=== PATIENT | female | born 1995 | race African-American/Black ===

== ENCOUNTER 2020-02-25 17:30 | Emergency (ER) | payer BC, SELFPAY ==
[2020-02-25 17:50] VITALS: BP 112/78; PULSE 100; RESP 18; TEMP 36.7; O2SAT 99; BMI 47.4
--- NOTE | 2020-02-25 17:54 | HMH.EDUTC ---
[facility] [place] Disposition Clinical Impression: Close exposure to COVID-19 virus Disposition: Home, Self-Care Condition on Discharge: Good Instructions: DI for COVID-19 (Suspected or Confirmed ), COVID-19: Testing and Tracing, Preventing the Spread of Coronavirus Discharge Instructions Additional Instructions: *Monitor Temp, Over the counter Motrin or Tylenol as directed/as needed Tylenol every 4 hours and Motrin every 6 hours (as long as your family doctor has told you that you can take it) for fever or pain. and straight to ER if unable to lower temp less than 101.0 after medication given *Warm salt water gargles may help to soothe the throat *Throat Lozenges *Warm fluids like tea with honey may help to soothe the throat *Sleep elevated *Humidifier/Vaporizer Follow up IMMEDIATELY for new or worsening symptoms or no Noticeable improvement over the next 48-72 hours. 911 for difficulty breathing or swallowing You were tested for today for COVID19 your test result should be back in the next 24-48 hours, you may call to the [facility] to see if your test results are back in the next 48 hours [phone] [facility] hours are 9am-9pm You was given a handout with instructions for Self Quarantine and Self isolation for while you wait on test results and what to do if they are positive If you are positive the Health Dept will be contacting you also Referrals: Paula Hammond APRN [Primary Care Provider] - As needed Forms: Work/School Release Time of Disposition: 17:56 Medical Decision Making - Misbah Inquiry Pt receiving controlled substance: No Misbah was queried for this patient: No Vital Signs: 02/25/20 17:50 Temperature 98.1 F Temperature Source Oral Pulse Rate [Radial] 100 H Respiratory Rate 18 Blood Pressure [Right Arm] 112/78 Blood Pressure Mean [Right Arm] 89 Blood Pressure Source [Right Arm] Automatic Cuff Blood Pressure Position [Right Arm] Sitting 02 Sat by Pulse Oximetry 99 Oxygen Delivery Method Room Air Orders (Tests/Meds): ORDERS Category Date Time Status Covid-19 Nasal PCR ([facility]) Routine Lab 02/25/20 17:32 Ordered [facility] [place] HPI - General Stated complaint: covid exposure,sore throat Time Seen by Provider: 02/25/20 17:54 Mode of Arrival: Ambulatory Source of Information: Patient Limitations: No Limitations Description of Symptoms (Recalled from Triage Doc. by RN): covid exposure, sore throat. HEENT Symptoms (Recalled from RN notes): No Resp Symptoms (Recalled from RN notes): No Skin Symptoms (Recalled from RN notes): No MS Symptoms (Recalled from RN notes): No Functional Status (Recalled from RN notes): wnl - History of Present Illness Provider Complaint: Patient states that she was recently exposed to person who is positive for COVID States that she lives with person that was recently tested for COVID and is positive States that she has been having a little sore scratchy throat but denies fever - Related Data Home Medications Medication Instructions Recorded Confirmed Etonogestrel [Nexplanon] 68 mg SQ DAILY 09/23/17 09/23/17 Previous Rx's Medication Instructions Recorded Ondansetron [Zofran 4mg ODT] 4 mg PO Q8H PRN #6 tab.rapdis 09/23/17 Allergies Allergy/AdvReac Type Severity Reaction Status Date / Time No Known Allergies Allergy Verified 09/23/17 11:36 - Worker's Comp Is this a Worker's Comp case?: No [facility] History - Hepatitis A Screen Drug use history?: No High risk sexual behaviors?: No History of sexually transmitted infection?: No Currently employed?: No Childcare worker?: No Do you have indoor plumbing?: Yes Do you have electricity?: Yes Attestation statement:: This patient has been screened for Hepatitis A risk factors. I have reviewed the patient's past medical history: Yes Medical History: Denies:: Diabetes Mellitus Type 1, Diabetes Mellitus Type 2, Gall Bladder Disease, Gastroesophageal Reflux Disease(GERD), Gastrointestinal Bleed, Hypertension, R
[2020-02-25 18:09] VITALS: BP 112/78; PULSE 100; RESP 18; TEMP 36.7; O2SAT 99
== END 2020-02-25 18:15 | disposition home or self-care (01) ==
PROVIDERS: Emergency Provider Nurse Practitioner; PCP Nurse Practitioner Family
DX: Z20.828 Contact with and (suspected) exposure to other viral communicable diseases (principal)
CPT/HCPCS: 99201; U0003

== ENCOUNTER 2020-03-06 15:48 | Emergency (ER) | payer BC, SELFPAY ==
[2020-03-06 16:40] VITALS: BP 142/76; PULSE 85; RESP 19; TEMP 36.8; O2SAT 98; BMI 47.6
--- NOTE | 2020-03-06 17:01 | HMH.EDUTC ---
[facility] [place] Disposition Clinical Impression: Strep throat, Encounter by telehealth for suspected COVID-19 Disposition: Home, Self-Care Condition on Discharge: Good Instructions: DI for COVID-19 (Suspected or Confirmed ), COVID-19: Testing and Tracing, Preventing the Spread of Coronavirus Discharge Instructions, DI for Strep Throat, Strep Throat Additional Instructions: *Monitor Temp, Over the counter Motrin or Tylenol as directed/as needed Tylenol every 4 hours and Motrin every 6 hours (as long as your family doctor has told you that you can take it) for fever or pain. and straight to ER if unable to lower temp less than 101.0 after medication given *Warm salt water gargles may help to soothe the throat *Throat Lozenges *Warm fluids like tea with honey may help to soothe the throat *Sleep elevated *Humidifier/Vaporizer If you did not take Penicillin shot or was unable to, start taking antibiotic immediately and make sure that you take it for the FULL length of time although you should start to feel better in 24-48 hours *change toothbrush and toothpaste 24-48 hours after starting to take antibiotics so you do not reinfect yourself Monitor Temp. Tylenol and/or Ibuprofen as needed. ER if fever is no less than 101 despite alternating Tylenol and Ibuprofen * Encourage fluids, water, Gatorade, powerade, pedialyte if infant/toddler/or child *Cold fluids, popsicles and ice cream may feel good on his throat Follow up IMMEDIATELY for new or worsening symptoms or no Noticeable improvement over the next 48-72 hours. 911 for difficulty breathing or swallowing You were tested for today for COVID19 your test result should be back in the next 24-48 hours, you may call to the [facility] to see if your test results are back in the next 48 hours [phone] [facility] hours are 9am-9pm You was given a handout with instructions for Self Quarantine and Self isolation for while you wait on test results and what to do if they are positive If you are positive the Health Dept will be contacting you also Prescriptions: Amoxicillin [Amoxicillin 500mg Cap] 500 mg PO BID 10 Days #20 cap Transmission Status: Pending to [facility] Referrals: Paula Hammond APRN [Primary Care Provider] - As needed Time of Disposition: 17:17 Medical Decision Making - Misbah Inquiry Pt receiving controlled substance: No Misbah was queried for this patient: No Vital Signs: 03/06/20 16:40 Temperature 98.2 F Temperature Source Oral Pulse Rate [Left Brachial] 85 Respiratory Rate 19 Blood Pressure [Right Arm] 142/76 H Blood Pressure Mean [Right Arm] 98 Blood Pressure Source [Right Arm] Automatic Cuff Blood Pressure Position [Right Arm] Sitting 02 Sat by Pulse Oximetry 98 Oxygen Delivery Method Room Air - Lab Data Lab results reviewed: Yes: I reviewed the patient's lab results. Orders (Tests/Meds): ORDERS Category Date Time Status Covid-19 Nasal PCR ([facility]) Routine Lab 03/06/20 16:32 Ordered [facility] [place] HPI - General Stated complaint: sore throat, cough, soa (exposure) Time Seen by Provider: 03/06/20 17:01 Mode of Arrival: Ambulatory Source of Information: Patient Limitations: No Limitations Description of Symptoms (Recalled from Triage Doc. by RN): PATIENT REQUESTING COVID TEST D/T EXPOSURE. C/O COUGH, SORE THROAT, FATIGUE, AND CONGESTION HEENT Symptoms (Recalled from RN notes): Yes Resp Symptoms (Recalled from RN notes): No Skin Symptoms (Recalled from RN notes): No MS Symptoms (Recalled from RN notes): No Functional Status (Recalled from RN notes): WNL - History of Present Illness Provider Complaint: Patient states that she has been having sore throat, body aches, fever and feeling tired State that she was worried that she may have COVID and wanted to get tested - Related Data Home Medications Medication Instructions Recorded Confirmed Etonogestrel [Nexplanon] 68 mg SQ DAILY 09/23/17 09/23/17 Previous Rx's Medication Instructions R
[2020-03-06 17:29] VITALS: BP 142/76; PULSE 85; RESP 19; TEMP 36.8; O2SAT 98
[2020-03-06 21:12] LABS: UTC Strep Screen (Rapid) Positive (Negative)
--- NOTE | 2020-03-07 10:00 | PC.NURSE ---
PATIENT NOTIFIED OF POSITIVE COVID RESULTS
== END 2020-03-06 17:30 | disposition home or self-care (01) ==
PROVIDERS: Emergency Provider Nurse Practitioner; PCP Nurse Practitioner Family
DX: U07.1 COVID-19 (principal); J02.0 Streptococcal pharyngitis
CPT/HCPCS: 87880; 99202; G0463; U0003

== ENCOUNTER → 2020-11-05 19:40 | Outpatient (CLI) | payer BC, SELFPAY | PROVIDERS: Visit Provider Nurse Practitioner Family | DX: Z20.822 Contact with and (suspected) exposure to COVID-19 (principal) | CPT/HCPCS: U0003 ==

== ENCOUNTER 2021-02-26 20:31 | Emergency (ER) | payer BC, SELFPAY ==
[2021-02-26 21:24] VITALS: BP 130/94; PULSE 93; RESP 16; TEMP 36.6; O2SAT 97; BMI 45.1
[2021-02-26 21:35] LABS: Apearance,Urine Turbid (Clear); Bilirubin,Urine Negative (Negative); Blood, Urine 3+ (Negative); Color,Urine Amber (Yellow); Glucose,Urine (UA) Negative (Negative); Ketones,Urine Negative (Negative); PH,Urine 5.5 (5.0-8.5); Protein,Urine 2+ (Negative); Specific Gravity, Urine > 1.030 (1.005-1.030); UTC Leukocyte Esterase,Urine 1+ (Negative); UTC Nitrate,Urine Positive (Negative); Urobilinogen,Urine 0.2 EU/dl (0.2)
[2021-02-26 21:44] LABS: Urine Pregnancy, HCG Qual. Negative (Negative)
--- NOTE | 2021-02-26 21:44 | HMH.EDUTC ---
[facility] [place] Disposition Clinical Impression: UTI (urinary tract infection) Qualifiers: Urinary tract infection type: site unspecified Hematuria presence: with hematuria Qualified Code(s): N39.0 - Urinary tract infection, site not specified Disposition: Home, Self-Care Condition on Discharge: Good Instructions: Urine Culture, DI for Urinary Tract Infection (UTI) Additional Instructions: Drink plenty of fluids. Water would be best. Try to drink cranberry juice also. At least a glass a day for the next few days. Take tylenol or ibuprofen for pain or fever. Take the medications as directed. Follow up with your regular doctor. GO TO THE ER FOR ANY WORSENING SYMPTOMS The pyridium will make your urine turn orange, this is an expected side effect. It will stain your clothes if it comes into contact with them. Prescriptions: Ondansetron [Zofran 4mg ODT] 4 mg PO Q8HP PRN #20 tab PRN Reason: Nausea Transmission Status: [email or web address] Sulfamethoxazole/Trimethoprim [Bactrim DS tablet] 1 each PO BID 7 Days #14 tab Transmission Status: [email or web address] Phenazopyridine HCl [Pyridium 200mg Tablet] 200 pow PO TID #6 tab Transmission Status: [email or web address] Referrals: Paula Hammond APRN [Primary Care Provider] - Time of Disposition: 22:24 Medical Decision Making - Medical Records Medical records reviewed: No: I reviewed the patient's medical records. - Misbah Inquiry Pt receiving controlled substance: No Vital Signs: 02/26/21 21:24 02/26/21 21:49 Temperature 97.8 F 97.8 F Temperature Source Oral Pulse Rate 93 H Pulse Rate [Left] 93 H Respiratory Rate 16 16 Blood Pressure 130/94 H Blood Pressure [Right Arm] 130/94 H Blood Pressure Mean [Right Arm] 106 02 Sat by Pulse Oximetry 97 - Lab Data Lab results reviewed: Yes: I reviewed the patient's lab results. Lab Results 02/26/21 21:21: Urine HCG, Qual Negative 02/26/21 21:31: Urine Color Karolyn, Urine Appearance Turbid, Urine pH 5.5, Ur Specific Flynn > 1.030 H, Urine Protein 2+, Urine Glucose (UA) Negative, Urine Ketones Negative, Urine Blood 3+, Urine Nitrate Positive A, Urine Bilirubin Negative, Urine Urobilinogen 0.2, Ur Leukocyte Esterase 1+ A Orders (Tests/Meds): ED MEDICATIONS Discontinued Medications Generic Name Dose Route Start Last Admin Trade Name Monicoq PRN Reason Stop Dose Admin Phenazopyridine HCl 200 mg 02/26/21 22:30 02/26/21 22:33 Phenazopyridine 200mg Tablet PO 02/26/21 22:31 200 mg ONCE ONE Administration Trimethoprim/Sulfamethoxazole 1 each 02/26/21 22:32 02/26/21 22:33 Sulfa/Trimethoprim 1 Tablet PO 02/26/21 22:33 1 each ONCE ONE Administration ORDERS Category Date Time Status Urine Culture Stat Micro 02/26/21 21:21 Received [facility] [place] HPI - General Stated complaint: possible uti Time Seen by Provider: 02/26/21 21:44 Mode of Arrival: Ambulatory Source of Information: Patient Limitations: No Limitations Description of Symptoms (Recalled from Triage Doc. by RN): pt c/o pain with urination since this am. HEENT Symptoms (Recalled from RN notes): No Resp Symptoms (Recalled from RN notes): No Skin Symptoms (Recalled from RN notes): No MS Symptoms (Recalled from RN notes): No Functional Status (Recalled from RN notes): wnl - History of Present Illness Provider Complaint: She states that since this morning she has had burning with urination, urinary frequency and low back pain. - Related Data Home Medications Medication Instructions Recorded Confirmed Etonogestrel [Nexplanon] 68 mg SQ DAILY 09/23/17 11/05/20 Previous Rx's Medication Instructions Recorded Ondansetron [Zofran 4mg ODT] 4 mg PO Q8HP PRN #20 tab 02/26/21 Phenazopyridine HCl [Pyridium 200 pow PO TID #6 tab 02/26/21 200mg Tablet] Sulfamethoxazole/Trimethoprim 1 each PO BID 7 Days #14 tab 02/26/21 [Bactrim DS tablet] Phi
[2021-02-26 21:49] VITALS: BP 130/94; PULSE 93; RESP 16; TEMP 36.6
== END 2021-02-26 22:40 | disposition home or self-care (01) ==
PROVIDERS: Emergency Provider Nurse Practitioner Family; PCP Nurse Practitioner Family
DX: N30.00 Acute cystitis without hematuria (principal); B96.20 Unspecified Escherichia coli [E. coli] as the cause of diseases classified elsewhere
CPT/HCPCS: 81003; 81025; 87086; 87088; 87186; 99202; G0463

== ENCOUNTER → 2021-10-29 13:30 | Outpatient (CLI) | payer BC, SELFPAY | PROVIDERS: PCP Nurse Practitioner Family; Visit Provider Obstetrics & Gynecology | DX: N92.6 Irregular menstruation, unspecified (principal) | CPT/HCPCS: 36415; 84702 ==

== ENCOUNTER → 2021-11-01 15:50 | Outpatient (CLI) | payer BC, SELFPAY ==
[2021-11-05 22:20] LABS: Neisseria gonorrhoeae, NAA Negative (Negative)
== END ==
PROVIDERS: Visit Provider Obstetrics & Gynecology
DX: Z34.90 Encounter for supervision of normal pregnancy, unspecified, unspecified trimester (principal)
CPT/HCPCS: 87086; 87491; 87591

== ENCOUNTER → 2021-11-23 12:36 | Outpatient (CLI) | payer BC, SELFPAY ==
[2021-11-23 12:59] LABS: Basophils # 0.1 K/mm3 (0-0.2); Basophils % 0.7 % (0.1-2.0); Eosinophils # 0.1 K/mm3 (0.0-0.4); Eosinophils % 1.2 % (0.1-12.0); Hematocrit 39.7 % (37.0-47.0); Hemoglobin 12.9 g/dL (12.2-16.2); Lymphocytes # 2.1 K/mm3 (0.7-4.5); Lymphocytes % 29.8 % (10-50); Mean Corpuscular HGB Conc 32.5 g/dL (31.8-35.4); Mean Corpuscular Hemoglobin 28.6 pg (27.0-31.2); Mean Corpuscular Volume 88.1 fl (81-99); Mean Platelet Volume 8.1 fl (7.4-10.4); Monocytes # 0.3 K/mm3 (0.1-1.0); Neutrophils # 4.4 K/mm3 (1.8-7.8); Neutrophils % 63.4 % (37.0-80.0); Platelet Count 348 K/mm3 (142-424); Red Blood Count 4.51 M/mm3 (4.20-5.40); Red Cell Distribution Width 13.3 % (11.5-17.5); White Blood Count 6.9 K/mm3 (4.8-10.8)
[2021-11-24 08:11] LABS: Rapid Plasma Reagin Ab Titer Non Reactive (NonRea<1:1)
[2021-11-24 09:18] LABS: HIV Screen 4th Generation wRfx Non Reactive (Non Reactive); Hepatitis B Surface Antigen Negative (Negative); Hepatitis C Antibody <0.1 s/co ratio (0.0-0.9)
[2021-11-25 09:32] LABS: Rubella Antibodies, IgG 4.05 index (Immune >0.99)
== END ==
PROVIDERS: PCP Nurse Practitioner Family; Visit Provider Obstetrics & Gynecology
DX: Z34.90 Encounter for supervision of normal pregnancy, unspecified, unspecified trimester (principal)
CPT/HCPCS: 36415; 85025; 86592; 86703; 86762; 86850; 87340; 87380; G0432

== ENCOUNTER → 2022-01-21 12:55 | Outpatient (CLI) | payer BC, SELFPAY ==
--- NOTE | 2022-01-21 12:55 | US_ITS ---
FINAL REPORT CLINICAL HISTORY: 20 week anatomy scan FINDINGS: There is a single live intrauterine gestation. Presentation is breech. The cervix is closed and measures 3.9 cm. Placenta is anterior, grade 1. movement is noted. Heart rate is measured at 144 beats per minute. Three-vessel cord with satisfactory umbilical cord insertion. Four-chamber heart is noted. brain and ventricles are unremarkable. Chest and diaphragm are unremarkable. ABDOMEN: Both kidneys are unremarkable. Stomach is unremarkable. SPINE: No anomalies identified. Both arms and legs noted. AMNIOTIC FLUID: Appropriate amount. MEASUREMENTS: ULTRASOUND AGE: 19 weeks 5 days. GESTATION AGE: 19 weeks 2 days. ESTIMATED WEIGHT: 299 g GROWTH PERCENTILE: 61% LMP percentile BPD: 4.6 cm corresponding with 19 weeks 6 days. OFD: 5.8 cm corresponding with 20 weeks 0 days. HC: 16.4 cm corresponding with 19 weeks 1 days. AC: 13.9 cm corresponding with 19 weeks 3 days. FL: 3.2 cm corresponding with 20 weeks 0 days. CEREBELLUM: 1.8 cm corresponding with 19 weeks 1 days. HUMERUS: 2.9 cm corresponding with 19 weeks 4 days. HC/AC: 1.18 CI: 79% FL/BPD: 69% FL/AC: 23% IMPRESSION: Single living IUP with an ultrasound age of 19 weeks 5 days. Right ventricular outflow tract is not seen of uncertain significance. Recommend follow-up or high risk scan. Reviewed, Interpreted and Dictated by Dutch Hong III, MD Transcribed by Keyla Abbasi Authenticated and [facility]
== END ==
PROVIDERS: PCP Nurse Practitioner Family; Visit Provider Obstetrics & Gynecology
DX: Z34.90 Encounter for supervision of normal pregnancy, unspecified, unspecified trimester (principal); Z3A.20 20 weeks gestation of pregnancy
CPT/HCPCS: 76811

== ENCOUNTER → 2022-03-26 10:29 | Outpatient (CLI) | payer BC, SELFPAY ==
[2022-03-26 10:47] LABS: MANUAL DIFFERENTIAL MANUAL DIFFERENTIAL (MANUAL DIFF)
[2022-03-26 11:22] LABS: Glucose,Fasting 92 mg/dl (74-100)
[2022-03-26 11:31] LABS: Basophils % 0.2 % (0.1-2.0); Eosinophils # 0.1 K/mm3 (0.0-0.4); Eosinophils % 1.1 % (0.1-12.0); Hematocrit 37.4 % (37.0-47.0); Hemoglobin 12.4 g/dL (12.2-16.2); Lymphocytes # 2.1 K/mm3 (0.7-4.5); Lymphocytes % 20.5 % (10-50); Mean Corpuscular HGB Conc 33.2 g/dL (31.8-35.4); Mean Corpuscular Hemoglobin 29.1 pg (27.0-31.2); Mean Corpuscular Volume 87.9 fl (81-99); Mean Platelet Volume 8.5 fl (7.4-10.4); Monocytes # 0.4 K/mm3 (0.1-1.0); Monocytes % 4.1 % (1.7-9.3); Neutrophils # 7.7 K/mm3 (1.8-7.8); Neutrophils % 74.2 % (37.0-80.0); Platelet Count 388 K/mm3 (142-424); Red Blood Count 4.26 M/mm3 (4.20-5.40); Red Cell Distribution Width 13.2 % (11.5-17.5); White Blood Count 10.4 K/mm3 (4.8-10.8)
[2022-03-26 12:35] LABS: Glucose 1 Hour 124 mg/dL (74-100)
[2022-03-26 15:47] LABS: Lymphocytes % 18 % (10-50); Monocytes % 5 % (2-9); Neutrophils % 77 % (42-76); Total Cells Counted 100
[2022-03-26 15:48] LABS: Platelet Estimate Normal; RBC Morphology Normal
== END ==
PROVIDERS: PCP Nurse Practitioner Family; Visit Provider Obstetrics & Gynecology
DX: Z34.90 Encounter for supervision of normal pregnancy, unspecified, unspecified trimester (principal)
CPT/HCPCS: 36415; 82951; 85007; 85014; 85018; 85048; 85049

== ENCOUNTER → 2022-05-14 12:53 | Outpatient (CLI) | payer BC, SELFPAY ==
--- NOTE | 2022-05-14 12:56 | US_ITS ---
FINAL REPORT CLINICAL HISTORY: Growth and BAILEY LGA FINDINGS: There is a single live intrauterine gestation. Presentation is cephalic. Placenta is anterior, grade 2. Heart rate is 129 beats per minute. AMNIOTIC FLUID: Appropriate amount. BAILEY: 20.7 cm MEASUREMENTS: ULTRASOUND AGE: 38 weeks 6 days. GESTATION AGE: 35 weeks 3 days. ESTIMATED WEIGHT: 3630 g GROWTH PERCENTILE: Greater than 98% LMP percentile BPD: 9.7 cm corresponding with 39 weeks 6 days. OFD: 11.8 cm. HC: 34 cm corresponding with 39 weeks 1 days. AC: 35.7 cm corresponding with 39 weeks 5 days. FL: 7.1 cm corresponding with 36 weeks 4 days. HC/AC: 0.95 CI: 82% FL/BPD: 73% FL/AC: 20% IMPRESSION: Single living IUP with an ultrasound age of 38 weeks 6 days. BAILEY of 20.7 cm Reviewed, Interpreted and Dictated by Dutch Hong III, MD Transcribed by Keyla Abbasi Authenticated and [facility]
== END ==
LOC: RAD 12:54
PROVIDERS: PCP Nurse Practitioner Family; Visit Provider Obstetrics & Gynecology
DX: O26.849 Uterine size-date discrepancy, unspecified trimester (principal)
CPT/HCPCS: 76816

== ENCOUNTER 2022-05-16 13:00 | Outpatient (CLI) | payer BC, SELFPAY ==
[2022-05-16 13:21] VITALS: BMI 48.0
[2022-05-16 13:30] VITALS: BP 135/74; PULSE 92; RESP 17; TEMP 36.7; O2SAT 100
--- NOTE | 2022-05-16 13:56 | HMH.PHAINT1 ---
Pharmacy Intervention Comments: MEDICATION RECONCILIATION COMPLETE USING LIST FROM MOST RECENT MD OFFICE VISIT AND EXTERNAL PHARMACY FILL HISTORY.
[2022-05-16 13:58] LABS: Coronavirus 19, PCR Not Detected (NotDetected); Influenza A, PCR Not Detected (NotDetected); Influenza B, PCR Not Detected (NotDetected)
[2022-05-16 14:02] LABS: Strep Scrn Group A (Rapid) Negative (Negative)
[2022-05-16 14:14] LABS: Basophils % 0.4 % (0.1-2.0); Eosinophils # 0.1 K/mm3 (0.0-0.4); Eosinophils % 1.3 % (0.1-12.0); Hematocrit 36.5 % (37.0-47.0); Hemoglobin 11.9 g/dL (12.2-16.2); Lymphocytes # 1.8 K/mm3 (0.7-4.5); Lymphocytes % 19.7 % (10-50); Mean Corpuscular HGB Conc 32.6 g/dL (31.8-35.4); Mean Corpuscular Hemoglobin 27.6 pg (27.0-31.2); Mean Corpuscular Volume 84.6 fl (81-99); Mean Platelet Volume 9.7 fl (7.4-10.4); Monocytes # 0.5 K/mm3 (0.1-1.0); Monocytes % 5.5 % (1.7-9.3); Neutrophils # 6.6 K/mm3 (1.8-7.8); Neutrophils % 73.1 % (37.0-80.0); Platelet Count 346 K/mm3 (142-424); Red Blood Count 4.31 M/mm3 (4.20-5.40); Red Cell Distribution Width 12.8 % (11.5-17.5); White Blood Count 9.1 K/mm3 (4.8-10.8)
[2022-05-16 14:20] VITALS: BMI 49.5
[2022-05-16 14:20] LABS: Alanine Aminotransferase 22 U/L (12-78); Albumin Level 3.1 g/dl (3.5-5.0); Albumin/Globulin Ratio 1.2 (1.1-1.8); Alkaline Phosphatase 252 U/L (38-126); Anion Gap 10.4 mEq/L (5-15); Aspartate Amino Transferase 27 U/L (14-36); Bilirubin,Total 0.8 mg/dl (0.2-1.3); Blood Urea Nitrogen 6 mg/dl (7-17); Calcium 8.4 mg/dl (8.4-10.2); Carbon Dioxide 20 mmol/L (22.0-30.0); Chloride 108 mmol/L (98-107); Creatinine Clearance Estimated 209 mL/min (50-200); Estimated Glomerular Filt Rate 194 ml/min (>60); GFR (African American) 235 ML/MIN (>60); Globulin 2.6 g/dL (1.3-3.2); Glucose 95 mg/dl (74-100); Potassium 4.4 mmoL/L (3.5-5.1); Sodium 134 mmol/L (136-145); Total Protein,Serum 5.7 g/dl (6.3-8.2)
[2022-05-16 14:22] LABS: Microscopic, Urine URINE MICROSCOPIC (MICROSCOPIC)
[2022-05-16 14:23] LABS: Appearance,Urine CLEAR (Clear); Blood, Urine Negative (Negative); Color,Urine YELLOW (Yellow); Glucose,Urine (UA) Negative (Negative); Ketones,Urine Negative (Negative); Leukocyte Esterase,Urine TRACE (Negative); Nitrate,Urine Negative (Negative); Protein,Urine Negative (Negative); Specific Gravity, Urine >= 1.030 (1.005-1.030)
[2022-05-16 14:39] LABS: Amphetamine/Metha Screen,Urine Negative ng/ml (<1000)
[2022-05-16 14:40] LABS: Barbiturates Screen,Urine Negative ng/ml (<200)
[2022-05-16 14:41] LABS: Benzodiazepines Screen,Urine Negative ng/ml (<200); Cannabinoid Screen,Urine Negative ng/ml (<50)
[2022-05-16 14:42] LABS: Cocaine Screen,Urine Negative ng/ml (<300)
[2022-05-16 14:43] LABS: Methadone Screen,Urine Negative ng/ml (<300)
[2022-05-16 14:44] LABS: Opiate Screen,Urine Negative ng/ml (<300); Phencyclidine Screen,Urine Negative ng/ml (<25)
[2022-05-16 14:46] LABS: Bilirubin,Urine 1+ (Negative)
[2022-05-16 14:50] LABS: RBC,Urine Occasional #/hpf (0-3)
[2022-05-16 14:51] LABS: Bacteria,Urine 2+ /lpf
== END 2022-05-16 16:26 | disposition home or self-care (01) ==
LOC: OB 15:41 → OBOUT 15:59 → OB 16:00
PROVIDERS: PCP Nurse Practitioner Family; Visit Provider Obstetrics & Gynecology
DX: O26.893 Other specified pregnancy related conditions, third trimester (principal); Z3A.35 35 weeks gestation of pregnancy; O21.9 Vomiting of pregnancy, unspecified; R04.0 Epistaxis
CPT/HCPCS: 59025; 80053; 80305; 81001; 85025; 87086; 87430; 96360; C9803; U0003; U0005

== ENCOUNTER → 2022-05-19 23:44 | Outpatient (CLI) | payer BC, SELFPAY | PROVIDERS: PCP Nurse Practitioner Family; Visit Provider Obstetrics & Gynecology | DX: Z34.90 Encounter for supervision of normal pregnancy, unspecified, unspecified trimester (principal); Z3A.19 19 weeks gestation of pregnancy | CPT/HCPCS: 86403 ==

== ENCOUNTER 2022-06-07 17:58 | Outpatient (CLI) | payer BC, SELFPAY ==
[2022-06-07 18:18] VITALS: BP 125/89; PULSE 96; RESP 18; TEMP 36.9; O2SAT 97
[2022-06-07 18:20] VITALS: BMI 49.0
[2022-06-07 18:32] VITALS: BP 125/89; PULSE 96; RESP 18; TEMP 36.9; O2SAT 97; BMI 49.0
[2022-06-07 21:11] VITALS: BMI 50.1
== END 2022-06-07 21:05 | disposition home or self-care (01) ==
LOC: OBOUT 18:04 → OB 18:05
PROVIDERS: PCP Nurse Practitioner Family; Visit Provider Obstetrics & Gynecology
DX: O26.893 Other specified pregnancy related conditions, third trimester (principal); Z3A.38 38 weeks gestation of pregnancy
CPT/HCPCS: 59025

== ENCOUNTER 2022-06-12 04:48 | Inpatient (IN) | payer BC, SELFPAY ==
[2022-06-12] VITALS (12 sets, daily range): BP systolic 106–154; BP diastolic 50–99; PULSE 63–97; RESP 16–18; TEMP 36.3–43; O2SAT 97–99; BMI 50.1
[2022-06-12 05:31] LABS: Basophils % 0.2 % (0.1-2.0); Eosinophils # 0.1 K/mm3 (0.0-0.4); Eosinophils % 0.6 % (0.1-12.0); Hematocrit 35.9 % (37.0-47.0); Hemoglobin 11.8 g/dL (12.2-16.2); Lymphocytes # 2.3 K/mm3 (0.7-4.5); Lymphocytes % 20.8 % (10-50); Mean Corpuscular HGB Conc 32.7 g/dL (31.8-35.4); Mean Corpuscular Hemoglobin 27.6 pg (27.0-31.2); Mean Corpuscular Volume 84.3 fl (81-99); Mean Platelet Volume 9.3 fl (7.4-10.4); Monocytes # 0.5 K/mm3 (0.1-1.0); Monocytes % 4.2 % (1.7-9.3); Neutrophils # 8.1 K/mm3 (1.8-7.8); Neutrophils % 74.2 % (37.0-80.0); Platelet Count 365 K/mm3 (142-424); Red Blood Count 4.26 M/mm3 (4.20-5.40); Red Cell Distribution Width 13.5 % (11.5-17.5); White Blood Count 10.9 K/mm3 (4.8-10.8)
[2022-06-12 05:32] LABS: Coronavirus 19, PCR Not Detected (NotDetected); Influenza A, PCR Not Detected (NotDetected); Influenza B, PCR Not Detected (NotDetected)
[2022-06-12 05:32] LABS: Microscopic, Urine URINE MICROSCOPIC (MICROSCOPIC)
[2022-06-12 05:33] LABS: Appearance,Urine CLOUDY (Clear); Bilirubin,Urine Negative (Negative); Blood, Urine Negative (Negative); Color,Urine YELLOW (Yellow); Glucose,Urine (UA) Negative (Negative); Ketones,Urine TRACE (Negative); Leukocyte Esterase,Urine 2+ (Negative); Nitrate,Urine Negative (Negative); PH,Urine 6.5 (5.0-8.5); Protein,Urine Negative (Negative); Specific Gravity, Urine 1.015 (1.005-1.030)
[2022-06-12 05:37] LABS: Chloride 108 mmol/L (98-107); Potassium 3.7 mmoL/L (3.5-5.1); Sodium 136 mmol/L (136-145)
[2022-06-12 05:40] LABS: Alanine Aminotransferase 17 U/L (12-78); Albumin Level 3.5 g/dl (3.5-5.0); Albumin/Globulin Ratio 1.1 (1.1-1.8); Alkaline Phosphatase 307 U/L (38-126); Anion Gap 13.7 mEq/L (5-15); Aspartate Amino Transferase 22 U/L (14-36); Bilirubin,Total 0.9 mg/dl (0.2-1.3); Blood Urea Nitrogen 4 mg/dl (7-17); Calcium 9.1 mg/dl (8.4-10.2); Carbon Dioxide 18 mmol/L (22.0-30.0); Creatinine Clearance Estimated 161 mL/min (50-200); Estimated Glomerular Filt Rate 150 ml/min (>60); GFR (African American) 182 ML/MIN (>60); Globulin 3.2 g/dL (1.3-3.2); Glucose 93 mg/dl (74-100); Total Protein,Serum 6.7 g/dl (6.3-8.2)
[2022-06-12 05:46] LABS: Amphetamine/Metha Screen,Urine Negative ng/ml (<1000); Barbiturates Screen,Urine Negative ng/ml (<200)
[2022-06-12 05:47] LABS: Benzodiazepines Screen,Urine Negative ng/ml (<200)
[2022-06-12 05:48] LABS: Cannabinoid Screen,Urine Negative ng/ml (<50); Cocaine Screen,Urine Negative ng/ml (<300)
[2022-06-12 05:49] LABS: Methadone Screen,Urine Negative ng/ml (<300)
[2022-06-12 05:50] LABS: Opiate Screen,Urine Negative ng/ml (<300); Phencyclidine Screen,Urine Negative ng/ml (<25)
[2022-06-12 06:05] LABS: Amorphous Sediment,Urine 1+ /lpf; Bacteria,Urine 2+ /lpf
--- NOTE | 2022-06-12 07:13 | EXP.OB.APHP ---
OB - H&P: HPI Antepartum History of Present Illness Chief complaint: Scheduled elective primary History of present illness: Mrs Carmela Rosenthal is a 26 yo at 39w4d who presents to [facility] for scheduled elective primary secondary to LGA baby, suspected macrosomia. Ultrasound 05/14/22 demonstrated EFW > 98%ile, BAILEY 20.7. She has had good care. History of Present Criteria for establishing EDC:: LMP confirmed by 1st trimester US care: good care Ultrasounds: normal mid trimester US Obstetrical complications: none Medical complications: none Labs Blood type: A (+) positive Rubella: immune RPR/VDRL: nonreactive GBS status: negative HBsAG: negative PFSH [facility] Disclaimer: The information contained in this section may have been updated after the patient was seen, as this information can be updated by other users. Medical History (Updated 06/12/22 @ 07:25 by Ev Partida DO) Delivery by elective section size inconsistent with dates LGA (large for gestational age) fetus Maternal morbid obesity, antepartum Morbid obesity with BMI of 45.0-49.9, adult Nausea and vomiting with 39 completed weeks gestation Screening for genetic disease carrier status Surgical History No history of previous surgery Family History Other No significant family history Social History Smoking Status: Never smoker alcohol intake: current current occupational status: employed Travel in the last 8 weeks: None housing: house Review of Systems Review of Systems Review of systems:: pertinent systems reviewed and negative unless documented below Meds Home Medications and Allergies Home Medications Medication Instructions Recorded Confirmed Type prenat.vits,jossy,agf-qggu-krwee 1 tab PO DAILY Supplement 11/29/21 06/02/22 History New Prescriptions to Start Prescriptions: Allergies Allergy/AdvReac Type Severity Reaction Status Date / Time No Known Allergies Allergy Verified 06/02/22 11:25 OB - H&P: Exam Physical Exam Vital signs: Temp Pulse Resp BP Pulse Ox 98.6 F 97 H 18 154/85 H 98 06/12/22 06:09 06/12/22 06:09 06/12/22 06:09 06/12/22 06:09 06/12/22 06:09 Constitutional no acute distress Routine HEENT Exam Head: Present normocephalic and atraumatic Eye: Absent conjunctivae pink ENT: Present mucous membranes moist and dentition normal Routine Neck Exam Present full ROM Routine Respiratory Exam Present CTA bilaterally and normal respiratory effort Routine Cardiovascular Exam Present RRR Routine Abdominal Exam Present soft (Gravid) and obese; Absent tenderness Routine Rectal Exam Patient deferred: visual exam Routine Exam Patient deferred: external exam Routine Extremities Exam Present edema (+2 bilateral lower extremity edema) and full ROM; Absent calf tenderness Routine Neurological Exam Present alert, oriented X3 and moving all extremities Routine Psychiatric Exam Present normal affect and cooperative Detailed Labor and Delivery Exam Membranes: intact Baseline heart rate: 135 monitor accelerations: Present monitor decelerations: None terminal makeup operator variability: Moderate (11-25) OB - Results Labs Labs: Short CBC 06/12/22 Range/Units 05:13 WBC 10.9 H (4.8-10.8) K/mm3 Hgb 11.8 L (12.2-16.2) g/dL Hct 35.9 L (37.0-47.0) % Plt Count 365 (142-424) K/mm3 BMP 06/12/22 05:13 Sodium 136 Potassium 3.7 Chloride 108 H Carbon Dioxide 18 L BUN 4 L Creatinine 0.50 L Glucose 93 Calcium 9.1 Liver Function 06/12/22 Range/Units 05:13 Total Bilirubin 0.9 (0.2-1.3) mg/dl AST 22 (14-36) U/L ALT 17 (12-78) U/L Alkaline Phosphatase 307 H (38-126) U/L Albumin 3.5 (3.5-5.0) g/dl Urine
[2022-06-12 08:09] LABS: Cord Blood PH 7.36 (7.35-7.45)
--- NOTE | 2022-06-12 08:57 | P.CONPHA_ITS ---
Pharmacy Intervention Comments: Reconciled patient's home medication using [employer] provider notes.
--- NOTE | 2022-06-12 08:57 | HMH.PHAINT1 ---
Pharmacy Intervention Comments: Reconciled patient's home medication using LITHODUPLICATOR OPERATOR provider notes.
--- NOTE | 2022-06-12 09:11 | P.PNANES_ITS ---
[facility] Anesthesia Record Part I Anesthesia Record I Intake, IV Amount: 1,000 Estimated blood loss (mL): 800 Urine output (mL): 650 Blood Products used (#): none Blood Pressure: 134/67 SaO2: 99 Pulse Rate: 70 Respiratory Rate: 16 Temperature: 98.4 F Patient is:: Drowsy and Stable Stable to PACU at:: 09:05
--- NOTE | 2022-06-12 09:11 | EXP.ANES.CKL ---
[facility] Disclaimer: The information contained in this section may have been updated after the patient was seen, as this information can be updated by other users. Medical History (Updated 06/12/22 @ 07:25 by Ev Partida DO) Delivery by elective section size inconsistent with dates LGA (large for gestational age) fetus Maternal morbid obesity, antepartum Morbid obesity with BMI of 45.0-49.9, adult Nausea and vomiting with 39 completed weeks gestation Screening for genetic disease carrier status Surgical History No history of previous surgery Family History Other No significant family history Social History Smoking Status: Never smoker alcohol intake: current substance use type: denies use current occupational status: employed Travel in the last 8 weeks: None housing: house [facility] Anesthesia Checklist Patient Identification Patient Identification: Arm Band Structural Data Admitted From: Inpatient Planned Operative Procedure/s: Primary C/S Consent for Planned Operative Procedure(s) Verified: Yes Verified Documents: Surgical Consent and History and Physical NPO Status Verified Time NPO: 00:00 Additional verifications Anesthesia Reactions: No Airway Assessment C-Spine Mobility Assessed: Yes TMJ Mobility Assessed: Yes Dentition: Good Dentition Neurological Assessment Level of Consciousness: Awake and Alert Anesthesia Plan Anesthesia Risk discussed: Yes Anesthesia Plan: Verified ASA Class: III Anesthesia Type: Spinal (With Bilateral TAP block)
--- NOTE | 2022-06-12 09:20 | EXP.OP.NOTE ---
Date of procedure: 06/12/22 Pre-op Diagnosis:: 1. IUP at 39w4d 2. LGA baby, suspected macrosomia 3. Maternal morbid obesity 4. Elective primary Post-op Diagnosis:: 1. IUP at 39w4d 2. LGA baby, suspected macrosomia 3. Maternal morbid obesity 4. Elective primary 5. macrosomia 6. hemorrhage Procedure performed:: Primary Low Transverse section Surgeon:: Ev Partida DO Professor Of Religion(s):: Luz Gasca MD DYE HOUSE WORKER:: Christian Rojas Anesthesia: spinal Estimated blood loss (mL): 1,000 Clinical Note:: Mrs Carmela Rosenthal is a 26 yo at 39w4d who presents to [facility] for scheduled elective primary secondary to LGA baby, suspected macrosomia. Ultrasound 05/14/22 demonstrated EFW > 98%ile, BAILEY 20.7. She has had good care. Operative findings:: 1. Live male baby (baby's name is Kobe Troncoso) weighing 10 lb 4 oz (4649 grams), AGPARs 9, 9 2. Grossly normal appearing uterus, bilateral fallopian tubes and ovaries Operative note:: The risks, benefits and alternatives of the procedure were reviewed with the patient. Informed consent was obtained. Patient was taken to the operating room where spinal anesthesia was placed. The patient received 3 grams of Ancef preoperatively. Patient was placed in dorsal supine position with a leftward tilt. SCDs in place. Vallejo catheter was inserted and draining clear urine prior to the start of the procedure. heart tones were obtained. Panni retractor was placed on maternal abdomen. Patient was then prepped and draped in normal sterile fashion. Allis clamp test was performed to ensure adequate anesthesia. A Pfannenstiel skin incision was made 2 cm above pubic symphysis. This was carried through to underlying layer of fascia. Fascia was incised in midline, extended laterally with Sherwood scissors. Superior aspect of fascial incision was grasped with two Linda clamps, elevated up, and rectus muscle dissected off bluntly and sharply with Sherwood scissors. The retcus muscle was then in the midline and the peritoneum was entered bluntly with a digit. Peritoneal incision was then extended superiorly and inferiorly with good visualization of the bladder. Bladder blade was inserted. Bladder flap was made with Metzenbaum scissors. Bladder blade was reinserted over bladder flap. The lower uterine segment was incised in a transverse fashion. Large amount of clear amniotic fluid was noted. Head was delivered without difficulty. Remainder of body was delivered without difficulty. Mouth and nares were bulb suctioned. Spontaneous cry was noted. Delayed cord clamping was performed for 60 seconds. The umbilical cord was clamped and cut. The was handed to awaiting pediatric staff in stable condition. Dr. Ballard was present. Apgars were 9(1 min), 9(5 min). Section of umbilical cord was obtained. Gentle traction on the umbilical cord and uterine fundal massage delivered the placenta. Pitocin was started. Placenta was intact. Uterus was cleared of all clots and debris with a moist laparotomy sponge. Uterine atony was noted. She recevied Methergine 0.2mg IM x 1 dose. Corners of the uterine incision were grasped with Allis clamps. The uterine incision was reapproximated with # 1 Vicryl suture in a running, locked stitch. Second layer of the same stitch was used to imbricate the incision. Hemostasis was noted. Posterior cul-de-sac was cleaned with moist laparotomy sponge. (Uterus returned to the abdomen)Gutters cleared of all clots and debris with a moist laparotomy sponge. Reinspection of the lower uterine segment demonstrated small amount of oozing under bladder flap. Gel foam was placed under bladder flap. Vesicouterine peritoneum was reapproximated with 0-Vicryl suture. Hemostasis was noted. At this point all instruments and sponges were removed from the pelvis.? The peritoneum was grasped with Goldie clamps x 3. The peritoneum was reapproximated with 0 Vicryl suture in a running stitch.
--- NOTE | 2022-06-12 10:10 | SUR.PHASEI ---
TOB- [id number]. PH-7.35. NICO 147MD Geoffrey MADE AWARE. 2 UNITS OF BLOOD ON HOLD.
--- NOTE | 2022-06-12 11:06 | P.PNANES_ITS ---
[facility] Anesthesia Record Part II Anesthesia Record Part II Discharge Time: 09:35 Destination: Obstetric PACU nurse assessment reviewed?: Yes Patient Condition:: Good Anesthesia Complications:: None Swallowing reflex intact?: Yes Cyanosis?: No Blood Pressure: 134/99 Pulse Rate: 75 Temperature: 97.3 F Mental Status: Alert & Oriented Pain level:: 0 Nausea and/or vomitting:: None Intake, IV Amount: 0
[2022-06-12 12:48] LABS: Basophils % 0.2 % (0.1-2.0); Eosinophils # 0.1 K/mm3 (0.0-0.4); Eosinophils % 0.3 % (0.1-12.0); Hematocrit 32.9 % (37.0-47.0); Lymphocytes # 1.7 K/mm3 (0.7-4.5); Lymphocytes % 11.7 % (10-50); Mean Corpuscular HGB Conc 33.4 g/dL (31.8-35.4); Mean Corpuscular Hemoglobin 28.4 pg (27.0-31.2); Mean Platelet Volume 9.3 fl (7.4-10.4); Monocytes # 0.5 K/mm3 (0.1-1.0); Monocytes % 3.3 % (1.7-9.3); Neutrophils # 12.1 K/mm3 (1.8-7.8); Neutrophils % 84.4 % (37.0-80.0); Platelet Count 312 K/mm3 (142-424); Red Blood Count 3.87 M/mm3 (4.20-5.40); Red Cell Distribution Width 13.6 % (11.5-17.5); White Blood Count 14.3 K/mm3 (4.8-10.8)
[2022-06-13 05:12] VITALS: BP 134/73; PULSE 81; RESP 18; TEMP 36.6
[2022-06-13 07:57] LABS: Basophils % 0.1 % (0.1-2.0); Eosinophils # 0.1 K/mm3 (0.0-0.4); Eosinophils % 0.6 % (0.1-12.0); Hematocrit 30.8 % (37.0-47.0); Lymphocytes # 1.3 K/mm3 (0.7-4.5); Lymphocytes % 12.9 % (10-50); Mean Corpuscular HGB Conc 32.5 g/dL (31.8-35.4); Mean Corpuscular Hemoglobin 27.9 pg (27.0-31.2); Mean Corpuscular Volume 85.8 fl (81-99); Mean Platelet Volume 9.2 fl (7.4-10.4); Monocytes # 0.4 K/mm3 (0.1-1.0); Monocytes % 3.6 % (1.7-9.3); Neutrophils # 8.2 K/mm3 (1.8-7.8); Neutrophils % 82.8 % (37.0-80.0); Platelet Count 298 K/mm3 (142-424); Red Blood Count 3.59 M/mm3 (4.20-5.40); Red Cell Distribution Width 13.7 % (11.5-17.5); White Blood Count 9.9 K/mm3 (4.8-10.8)
--- NOTE | 2022-06-13 08:32 | EXP.ACUTE.PN ---
Subjective *Date: 06/13/22 *Time: 08:32 Interval history: POD # 1 s/p PLTCS Resting comfortably in bed. Pain is controlled. She is pumping and bottle feeding. Appropriate lochia. Voiding without difficulty and passing flatus. Tolerating regular diet. Denies fever/chills, chest pain and shortness of breath. No lightheadedness/dizziness. She admits to lower extremity swelling that has improved since delivery. Ambulating well ad merlyn. Medical Exam Vital signs and Labs for Last 24 Hours: Vital Signs Temp Pulse Pulse Resp BP BP Pulse Ox 06/13/22 05:12 97.9 F 81 18 134/73 06/12/22 20:24 98.3 F 71 18 120/65 97 06/12/22 20:24 98.3 F 71 18 120/65 97 06/12/22 09:35 97.3 F L 75 18 134/99 H 98 06/12/22 09:30 97.3 F L 65 18 126/98 H 97 06/12/22 09:25 97.3 F L 68 18 114/50 L 98 06/12/22 09:20 97.3 F L 65 18 106/58 L 97 06/12/22 09:15 97.3 F L 63 18 129/68 97 06/12/22 09:10 97.3 F L 69 18 152/91 H 99 06/12/22 09:05 97.3 F L 75 18 134/67 99 06/12/22 11:07 97.3 F L 75 134/99 H 06/12/22 09:12 98.4 F 70 16 134/67 Intake and Output 06/12/22 06/13/22 06/13/22 23:59 07:59 15:59 Output Total 700 / 700 Balance -700 / 300 Output: Output, Urine Amount (Catheter) 700 / 700 Vallejo 700 / 700 Laboratory Results - last 24 hr 06/12/22 05:13: Blood Type A Positive, Antibody Screen Negative, Crossmatch (AHG) See Detail 06/12/22 12:35: WBC 14.3 H D, RBC 3.87 L, Hgb 11.0 L, Hct 32.9 L, MCV 85.0, MCH 28.4, MCHC 33.4, RDW 13.6, Plt Count 312, MPV 9.3, Neut % (Auto) 84.4 H, Lymph % (Auto) 11.7, Hinds % (Auto) 3.3, Eos % (Auto) 0.3, Baso % (Auto) 0.2, Neut # (Auto) 12.1 H, Lymph # (Auto) 1.7, Hinds # (Auto) 0.5, Eos # (Auto) 0.1, Baso # (Auto) 0.0 06/13/22 07:30: WBC 9.9 D, RBC 3.59 L, Hgb 10.0 L, Hct 30.8 L, MCV 85.8, MCH 27.9, MCHC 32.5, RDW 13.7, Plt Count 298, MPV 9.2, Neut % (Auto) 82.8 H, Lymph % (Auto) 12.9, Hinds % (Auto) 3.6, Eos % (Auto) 0.6, Baso % (Auto) 0.1, Neut # (Auto) 8.2 H, Lymph # (Auto) 1.3, Hinds # (Auto) 0.4, Eos # (Auto) 0.1, Baso # (Auto) 0.0 I & O for Labs for Last 24 Hours: Intake & Output 06/10/22 06/11/22 06/12/22 06/13/22 23:59 23:59 23:59 23:59 Intake Total 1000 / 1000 Output Total 700 / 700 Balance 300 / 300 Weight 311 lb Microbiology Reports for the Last 24 Hours: Microbiology 06/12/22 05:00 Urine,Clean Catch Urine Culture - Preliminary NO GROWTH AFTER 24 HOURS Head: Present atraumatic and normocephalic ENT: Present normal exam and mucous membranes moist Neck: Present normal inspection and full ROM Respiratory: Present CTA bilaterally and normal respiratory effort Cardiac: Present Reg Rate and Rhythm GI: Present soft and normal bowel sounds; Absent distention or tenderness Comments:: Uterine fundus firm and below umbilicus, pfannenstiel incision clean/dry/intact with metal rohan Rectal (female): Present deferred (female): Present deferred Extremities: Present full ROM and edema (+1 bilateral lower extremity edema); Absent tenderness or calf tenderness Neuro: Present alert, awake and moves all extremities Assessment and Plan *Assessment and plan (1) with 39 completed weeks gestation: Status: Acute Category: Medical Code(s): Z3A.39 - 39 weeks gestation of (2) Delivery by elective section: Status: Acute Category: Medical Code(s): O82 - Encounter for delivery without indication (3) Macrosomia of fetus affecting management of mother in third trimester: Status: Acute Qualifiers: Fetus number: single or unspecified fetus Qualified Code(s): O36.63X0 - Maternal care for excessive growth, third trimester, not applicable or unspecified Category: Medical Code(s): O36.63X0 - Maternal care for excessive growth, third trimester, not applicable or unspe
[2022-06-13 20:00] VITALS: BP 135/85; PULSE 84; RESP 18; TEMP 36.6; O2SAT 98
[2022-06-14 04:30] VITALS: BP 131/85; PULSE 84; RESP 18; TEMP 36.8; O2SAT 98
[2022-06-14 08:30] VITALS: BP 118/70; PULSE 81; RESP 18; TEMP 36.5; O2SAT 99
--- NOTE | 2022-06-14 10:14 | EXP.DC.SUM ---
General Admission date:: 06/12/22 Discharge date: 06/14/22 HPI HPI HPI: Primary elective CS for macrosomia Postop course uneventful She is discharged home on POD #2 in stable condition She is tolerating a regular diet, ambulating and voiding without difficulty Pain control has been sufficient Lochia appropriate and she is asymptomatic with anemia Hgb 10.0 Hospital Course Hospital Course Hospital Course: As per HPI Exam Data for Last 24 hours Vital signs and Labs for Last 24 Hours: Temp Pulse Resp BP Pulse Ox 97.7 F 81 18 118/70 99 06/14/22 08:30 06/14/22 08:30 06/14/22 08:30 06/14/22 08:30 06/14/22 08:30 I & O for Last 24 hours: Intake & Output 06/11/22 06/12/22 06/13/22 06/14/22 11:59 11:59 11:59 11:59 Intake Total 1000 / 1000 Output Total 700 / 700 Balance 1000 / 1000 -700 / -700 Weight 311 lb Microbiology Reports for the Last 24 Hours: Microbiology 06/12/22 05:00 Urine,Clean Catch Urine Culture - Final NO GROWTH AFTER 48 HOURS Constitutional Constitutional: no acute distress *Routine HEENT Exam Head: Present normocephalic Eye: Absent conjunctival icterus or scleral injection ENT: Present mucous membranes moist *Routine Neck Exam Neck: Present supple *Routine Respiratory Exam Respiratory: Present CTA bilaterally *Routine Cardiovascular Exam Cardiovascular: Present RRR *Routine Abdominal Exam Abdominal: Present soft; Absent tenderness or distended *Routine Rectal Exam Patient deferred: visual exam and digital exam *Routine Exam Patient deferred: external exam Comments: Fundus firm below umbilicus *Routine Extremities Exam Extremities: Present edema *Routine Skin Exam Skin: Present intact and dry Comments: Incision intact without erythema or purulent drainage *Routine Neurological Exam Neurological: Present alert and oriented X3 Routine Psychiatric Exam Psychiatric: Present normal affect; Absent depressed DS: Diagnosis Discharge Diagnosis (1) with 39 completed weeks gestation: Status: Acute (2) Delivery by elective section: Status: Acute (3) Macrosomia of fetus affecting management of mother in third trimester: Status: Acute (4) Maternal morbid obesity, antepartum: Status: Acute (5) hemorrhage: Status: Acute (6) Acute blood loss anemia: Status: Acute Meds Home Medications and Allergies Home Medications Medication Instructions Recorded Confirmed Type prenat.vits,jossy,ldy-ppgv-mqqso 1 tab PO DAILY Supplement 11/29/21 06/12/22 History ibuprofen 400 mg tablet 800 mg PO Q8H #30 tabs 06/14/22 Rx oxycodone 5 mg tablet 5 mg PO Q4HP PRN Moderate Pain #24 06/14/22 Rx tabs New Prescriptions to Start Prescriptions: Luz Daniels oxycodone Luz Gasca Allergies Allergy/AdvReac Type Severity Reaction Status Date / Time No Known Allergies Allergy Verified 06/02/22 11:25 Discharge Plan Disposition Patient Disposition: Home, Self-Care Discharge Order Discharge Orders: Discharge Order (Routine); Ordered 06/14/22 Ordered By: Luz Gasca Follow up Plan Follow up with: Ev Partida DO [Staff Physician] - 06/27/22 10:30 am (Follow-up 06/20 @1130 to have rohan removed ) Prescriptions/Medication Reconciliation: New ibuprofen 400 mg Tablet 800 mg PO Q8H Qty: 30 0RF oxycodone 5 mg Tablet 5 mg PO Q4HP PRN (Reason: Moderate Pain) Qty: 24 0RF Continued prenat.vits,jossy,qed-hwal-njjeg Tablet 1 tab PO DAILY Problem Reconciliation Problems Reviewed?: Yes Patient Discharge Instructions Additional Instructions: Nothing in the vagina for 6 weeks No tub baths or driving until released Drink plenty of fluids No heavy lifting Patient Instructions: Depression, Hemorrhage, DI for , DI for Pre
== END 2022-06-14 14:50 | disposition home or self-care (01) | DRG 787 ==
PROVIDERS: Admitting Provider Obstetrics & Gynecology; PCP Nurse Practitioner Family; Visit Provider Obstetrics & Gynecology
PROC: 10D00Z1 Extraction of Products of Conception, Low, Open Approach (ICD-10-PCS; principal; 2022-06-12 07:30)
DX: O36.63X0 Maternal care for excessive fetal growth, third trimester, not applicable or unspecified (principal); D62 Acute posthemorrhagic anemia; O72.1 Other immediate postpartum hemorrhage; Z37.0 Single live birth; Z3A.39 39 weeks gestation of pregnancy; O99.214 Obesity complicating childbirth; O90.81 Anemia of the puerperium; Z23 Encounter for immunization
CPT/HCPCS: 59514; 36415; 59025; 80053; 80305; 81001; 82800; 85025; 86850; 87086; 94761; C9290; C9803; G0283; J1756; J2405; U0003; U0005

== ENCOUNTER 2022-09-18 23:48 | Emergency (ER) | payer BC, SELFPAY ==
[2022-09-18 23:48] VITALS: BP 140/91; PULSE 106; RESP 18; TEMP 36.9; O2SAT 100; BMI 43.8
--- NOTE | 2022-09-18 23:51 | ECG_ITS ---
APPROVED REPORT Exam: Resting ECG HR:80 bpm ECG Measurements Heart Rate 80 AXES MS 152 P 58 QRSd 93 QRS 68 QT 374 T 47 QTc 409 Conclusion SINUS RHYTHM NORMAL ECG UNCONFIRMED REPORT Electronically signed by : James Ballard MD 09/19/2022 17:13:00
[2022-09-18 23:57] VITALS: PULSE 80
--- NOTE | 2022-09-19 | XR_ITS ---
PROCEDURE INFORMATION: Exam: XR Chest Exam date and time: 09/19/2022 12:26 AM Age: 26 years old Clinical indication: On breathing and sternal or substernal pain; Additional info: Cp TECHNIQUE: Imaging protocol: Radiologic exam of the chest. Views: 2 views. Total images: 2 COMPARISON: No relevant prior studies available. FINDINGS: Lungs: Poor lung expansion. No acute infiltrate, vascular congestion, or airspace consolidation. No interstitial edema. Pleural spaces: Unremarkable. No pleural effusion. No pneumothorax. Heart/Mediastinum: Unremarkable. No cardiomegaly. No mediastinal widening or hilar enlargement. Bones/joints: Unremarkable. IMPRESSION: 1. No radiographically acute cardiopulmonary process. 2. Poor lung expansion.
[2022-09-19 00:01] VITALS: BP 121/67; PULSE 80; RESP 22; O2SAT 96
[2022-09-19 00:10] LABS: Lipase 173 U/L (23-300)
[2022-09-19 00:11] LABS: Alanine Aminotransferase 23 U/L (12-78); Albumin Level 4.5 g/dl (3.5-5.0); Albumin/Globulin Ratio 1.3 (1.1-1.8); Alkaline Phosphatase 151 U/L (38-126); Aspartate Amino Transferase 26 U/L (14-36); Bilirubin,Total 0.5 mg/dl (0.2-1.3); Blood Urea Nitrogen 13 mg/dl (7-17); Calcium 9.1 mg/dl (8.4-10.2); Carbon Dioxide 29 mmol/L (22.0-30.0); Chloride 105 mmol/L (98-107); Creatinine Clearance Estimated 105 mL/min (50-200); Estimated Glomerular Filt Rate 87 ml/min (>60); GFR (African American) 106 ML/MIN (>60); Globulin 3.4 g/dL (1.3-3.2); Glucose 105 mg/dl (74-100); Sodium 142 mmol/L (136-145); Total Protein,Serum 7.9 g/dl (6.3-8.2)
--- NOTE | 2022-09-19 00:23 | HMH.EDGENADL ---
Discharge Plan Disposition Patient Disposition: Home, Self-Care Condition: Good Prescriptions Prescriptions: New famotidine [Acid Controller] 20 mg tablet 20 mg PO Q12H 14 Days Qty: 28 0RF ondansetron HCl 4 mg tablet 4 mg PO Q6H PRN (Reason: nausea and vomiting) Qty: 10 0RF No Action prenat.vits,jossy,yea-fwhi-hqavx Tablet 1 tab PO DAILY Referrals Follow up/Referrals: Paula Hammond APRN [Primary Care Provider] - See instructions Activity Restrictions/Add. Instructions Additional Instructions/Restrictions: Take Tylenol 1000 mg every 6 hours (4 times daily) and ibuprofen 400 mg every 6 hours (4 times daily) as needed with food and water to prevent GI upset and kidney damage. Zofran every 6 hours, dissolves under your tongue to prevent nausea. Pepcid also sent to the pharmacy, take this as prescribed to help with abdominal pain. If you have any worsening of your condition or any other concerning signs or symptoms, return to the emergency department or your primary care doctor for further evaluation. Clinical Impressions Clinical Impression: Abdominal pain Qualifiers: Abdominal location: right upper quadrant Qualified Code(s): R10.11 - Right upper quadrant pain Vomiting Qualifiers: Vomiting type: unspecified Nausea presence: with nausea Qualified Code(s): R11.2 - Nausea with vomiting, unspecified Discharge ED Provider: Juvenal Beth General Adult HPI General Chief complaint: Chest Pain Stated complaint: Chest pain Time Seen by Provider: 09/18/22 23:50 Mode of Arrival: Ambulatory Source of Information: Patient Limitations: No Limitations Description of Symptoms (Recalled from ER Triage Doc. by RN): pt c/o midsternal chest pain that radiates to back that started @ 11pm. History of Present Illness HPI narrative: This is a 26-year-old female with history of presenting with abdominal pain. Patient states about 1 hour prior to arrival on 09/26 at 2300 she was in the shower when she had an acute onset epigastric/right upper quadrant pain. Radiated directly through to her back/right shoulder. Initially 8 out of 10 and stabbing, currently largely resolved. Associated with nausea and vomiting that was nonbloody, nonbilious. No diarrhea. Patient denies fevers, chills, hematemesis, neurologic deficits, chest pain, shortness of breath, or any other concerns. She does not have any overlying skin changes. Never had any pain like this in the past. Sitting up makes it better, lying down flat makes it worse. Related Data Home Medications Medication Instructions Recorded Confirmed prenat.vits,jossy,xeh-ulpn-dkbdu 1 tab PO DAILY Supplement 11/29/21 09/19/22 Previous Rx's Medication Instructions Recorded famotidine 20 mg tablet (Acid 20 mg PO Q12H 14 days #28 tabs 09/19/22 Controller) ondansetron HCl 4 mg tablet 4 mg PO Q6H PRN nausea and 09/19/22 vomiting #10 tabs Allergies Allergy/AdvReac Type Severity Reaction Status Date / Time No Known Allergies Allergy Verified 07/23/22 14:23 [facility] Disclaimer: The information contained in this section may have been updated after the patient was seen, as this information can be updated by other users. Medical History Acute blood loss anemia delivery delivered Delivery by elective section size inconsistent with dates LGA (large for gestational age) fetus Macrosomia of fetus affecting management of mother in third trimester Maternal morbid obesity, antepartum Morbid obesity with BMI of 45.0-49.9, adult Nausea and vomiting Nexplanon insertion Nexplanon inserted 07/23/22 hemorrhage with 39 completed weeks gestation Screening for genetic disease carrier status 11/29/21 - [facility] carrier screen negative for 14 conditions tested including CF, Fragile X and SMA Surgical History No hi
[2022-09-19 00:24] LABS: Troponin I < 0.01 ng/ml (0.00-0.034)
[2022-09-19 00:38] LABS: Lactic Acid 0.9 mmol/L (0.7-2.1)
[2022-09-19 01:01] VITALS: BP 117/77; PULSE 84; RESP 20; O2SAT 99
[2022-09-19 01:05] LABS: Hematocrit 36.8 % (37.0-47.0); Hemoglobin 12.2 g/dL (12.2-16.2); Mean Corpuscular HGB Conc 33.2 g/dL (31.8-35.4); Mean Corpuscular Hemoglobin 27.2 pg (27.0-31.2); Red Blood Count 4.49 M/mm3 (4.20-5.40)
[2022-09-19 01:06] LABS: Basophils % 0.3 % (0.1-2.0); Eosinophils # 0.2 K/mm3 (0.0-0.4); Eosinophils % 3.1 % (0.1-12.0); Lymphocytes # 3.2 K/mm3 (0.7-4.5); Monocytes # 0.5 K/mm3 (0.1-1.0); Monocytes % 7.1 % (1.7-9.3); Neutrophils # 3.4 K/mm3 (1.8-7.8); Neutrophils % 46.5 % (37.0-80.0); Platelet Count 450 K/mm3 (142-424); White Blood Count 7.3 K/mm3 (4.8-10.8)
[2022-09-19 01:31] VITALS: BP 109/55; PULSE 67; RESP 19; O2SAT 100
[2022-09-19 01:47] LABS: Microscopic, Urine URINE MICROSCOPIC (MICROSCOPIC)
[2022-09-19 01:53] LABS: Blood, Urine Negative (Negative); Color,Urine YELLOW (Yellow); Glucose,Urine (UA) Negative (Negative); Ketones,Urine Negative (Negative); Leukocyte Esterase,Urine Negative (Negative); Nitrate,Urine Negative (Negative); Protein,Urine TRACE (Negative); Specific Gravity, Urine >= 1.030 (1.005-1.030)
[2022-09-19 02:12] LABS: Urine Pregnancy, HCG Qual. Negative (Negative)
[2022-09-19 02:13] LABS: Appearance,Urine Slightly Cloudy (Clear); Bilirubin,Urine Negative (Negative); Squamous Epithelial Cell,Urine Occasional #/hpf (0-5)
[2022-09-19 02:14] LABS: Amorphous Sediment,Urine 1+ /lpf; Bacteria,Urine 1+ /lpf
[2022-09-19 04:14] VITALS: BP 115/74; PULSE 68; RESP 17; TEMP 36.9; O2SAT 100
== END 2022-09-19 04:23 | disposition home or self-care (01) ==
PROVIDERS: Emergency Provider Emergency Medicine; PCP Nurse Practitioner Family
DX: R07.9 Chest pain, unspecified (principal); R10.11 Right upper quadrant pain; R11.2 Nausea with vomiting, unspecified
CPT/HCPCS: 71046; 80048; 80053; 81001; 81025; 83605; 83690; 84484; 85025; 93005; 96361; 96374; 96375; 96376; 99285; J2405

== ENCOUNTER 2024-11-23 19:28 | Emergency (ER) | payer SELFPAY ==
--- OUTSIDE RECORDS SUMMARY | 2024-01-27 12:00 | XMS_ITS ---
Author Organization [facility] Address [address] [place] [address] Care Team Providers Care Filterer Name Role Phone Noemí Hammond Primary Care Provider NOEMÍ HAMMOND Unavailable Unavaila ble REASON FOR VISIT 1 month f/u Encounters Encounter Location Date Provider Diagnosis [facility] [address] [place] [address] 01/27/2024 Noemí Hammond Plan Of Treatment No Information Progress Notes * Rainer CHAMBERSVitorOB: 7 (29 yo F)Acc No.[id number]:01/27/2024 Progress Notes Patient: Dada PRIDEzlynn Provider: ISHMAEL Godinez :1995 A ge:28 Y S ex:Female Date:01/27/2024 Address:[address] [place], [id number] Subjective: * Chief Complaints: * 1 . 1 month f/u. * Medical History: Objective: * Vitals: Assessment: Plan: * Treatment: * * Electronic signature of Beatriz Hammond APRN on 11/23/2024 at 07:52 PM EDT Sign off status: Pending * Provider: ISHMAEL Godinez Date: 03/28/2023 Generated for Bronwyn rose/Juan Daniel/Timitting on: 0 11/23/2024 07:52 PM EDT
--- OUTSIDE RECORDS SUMMARY | 2024-02-25 08:00 | XMS_ITS ---
Author Organization [facility] Address [address] [place] [address] Care Team Providers Care Hot Dog Vender Name Role Phone Noemí Hammond Primary Care Provider [phone] NOEMÍ HAMMOND Unavailable Unavaila ble REASON FOR VISIT 3 Month F/U Encounters Encounter Location Date Provider Diagnosis [facility] [address] [place] [address] 02/25/2024 Noemí Hammond Plan Of Treatment No Information Progress Notes * Rainer CHAMBERSVitorOB: 7 (29 yo F)Acc No.[id number]:02/25/2024 Progress Notes Patient: Dada PRIDEzlynn Provider: ISHMAEL Godinez :1995 A ge:28 Y S ex:Female Date:02/25/2024 Address:[address] [place], [id number] Subjective: * Chief Complaints: * 1 . 3 Month F/U. * Medical History: Objective: * Vitals: Assessment: Plan: * Treatment: * * Electronic signature of Beatriz Hammond APRN on 11/23/2024 at 07:52 PM EDT Sign off status: Pending * Provider: ISHMAEL Gdoinez Date: 04/27/2023 Generated for Bronwyn rose/Juan Daniel/Timitting on: 0 11/23/2024 07:52 PM EDT
--- OUTSIDE RECORDS SUMMARY | 2024-06-04 17:30 | XMS_ITS ---
Author Organization [facility] Address [address] [facility] [address] [place] [address] Care Team Providers Care Pack Worker Name Role Phone Paula Hammond Primary Care Provider PAULA HAMMOND Unavailable Unavaila ble Migration, Provider Unavailable Unavailable REASON FOR VISIT [facility] Encounter Medications Medication SIG (Take, Route, Fr equency, Duration) Notes Start Date End Date Status ARIPiprazole 10 MG 1 tab(s) orally once a day; Duration: 30 days 01/20/2024 Active Sertraline HCl 100 MG 1 tab(s) orally once a day Active Wellbutrin XL 300 MG 1 tab(s) orally every 24 hours Active Encounters Encounter Location Date Provider Diagnosis [facility] [address] [facility] [address] [place] [address] 06/04/2024 Provider Migration Plan Of Treatment No Information Progress Notes * REYES PopeyeOB: 7 (29 yo F)Acc No.[id number]:06/04/2024 Patient: Dada PRIDEzlynn Provider: Saurabh mo Migration :1995 A ge:28 Y S ex:Female Date:06/04/2024 Address:[address], [id number] Pcp:Paula Hammond Subjective: * Chief Complaints: * 1 . Multum To Medispan Conversion Encounter. * Medical History: * Medications: T aking Wellbutrin XL 300 MG Tablet Extended Release 24 Hour 1 tab(s) orally every 24 hours , Taking Sertraline HCl 100 MG Tablet 1 tab(s) orally once a day , Taking ARIPiprazole 10 MG Tablet 1 tab(s) orally once a day Objective: * Vitals: Assessment: Plan: * Treatment: * * Electronic signature of Theresa hurtado Migration on 11/23/2024 at 07:52 PM EDT Sign off status: Pending * Provider: Saurabh mo Migration Date: 0 06/04/2024 Generated for Bronwyn rose/Juan Daniel/Jose Angel on: 0 11/23/2024 07:52 PM EDT
[2024-11-23 19:36] VITALS: BP 104/69; PULSE 74; RESP 20; TEMP 36.8; O2SAT 100; BMI 58.3
--- OUTSIDE RECORDS SUMMARY | 2024-11-23 19:53 | XMS_ITS | Clinical Summary ---
Author Organization [facility] Address [address] [place] [id number] Phone [email or web address] Care Team Providers Care Drill Press Operator Numerical Control Name Role Phone Provider, No Primary Care Provider Unavailabl e Allergies No known active allergies Medications promethazine (PHENERGAN) 25 MG tablet TAKE 1 TABLET BY MOUTH EVERY 8 HOURS NEEDED FOR NAUSEA AND VOMITING 11/29/2021 Active MV-Min-Fe Fum-FA-DHA ( 1 PO) Take by mouth. Active ARIPiprazole (ABILIFY) 10 MG tablet 1 (one) time each day at the same time. 01/20/2024 Active Active Problems Problem Noted Date Diagnosed Date Encounter for other administrative examinations 12/31/2021 Social History Tobacco Use Types Packs/Day Years Used Date Smoking Tobacco: Never Smokeless Tobacco: Never Intimate Partner Violence Answer Date R ecorded Insults You Not on file 06/13/2020 Threatens You Not on file 06/13/2020 Screams at You Not on file 06/13/2020 Physically Hurt Not on file 06/13/2020 Intimate Partner Violence Score Not on file 06/13/2020 Depression Answer Date Recorded PHQ Total Score 6 02/05/2024 Stress Answer Date Recorded Stress in your Life Not on file 01/04/2024 Dealing with Stress 3 01/04/2024 Comments Unknown Sex and Gender Information Value Date Recorded Sex Assigned at Not on file Legal Sex Female 4:35 PM CDT Gender Identity Female 08/24/2017 4:36 PM CDT Sexual Orientation Not on file Last Filed Vital Signs Vital Sign Reading Time Taken Comments Blood Pressure 148/78 02/05/2024 5:01 PM EST Pulse 90 02/05/2024 5:01 PM EST Temperature 36.9 C (98.4 F) 02/05/2024 5:01 PM EST Respiratory Rate 18 02/05/2024 5:01 PM EST Oxygen Saturation 98% 02/05/2024 5:01 PM EST Inhaled Oxygen Concentration - - Weight - - Height - - Body Mass Index - - Plan of Treatment Health Maintenance Due Date Last Done Comments Cervical Cancer Screening Combo 1995 Dental Cleaning/Exam 1996 HPV / Cotest 1996 Pap Testing 1995 HPV Immunization (1 - 2-dose series) 10/12/2007 Hepatitis B Immunization (1 of 3 - 19+ 3-dose series) 10/12/2015 Covid-19 Immunization ( - season) 2024 06/30/2020, 05/31/2020 Influenza Immunization (#1) 2024 Tetanus Diphtheria and Pertussis Immunization (2 - Td or Tdap) 04/01/2032 04/01/2022 HIB Immunization Aged Out No longer e ligible based on patient's age to complete this topic Hepatitis A Immunization Aged Out No longer eligible based on patient's age to complete this topic Pneumococcal Immunization Aged Out No longer eligible based on patient's age to complete this topic Polio Immunization Aged Out No longer eligible based on patient's age to complete this topic Varicella Immunization Aged Out No lo nger eligible based on patient's age to complete this topic Insurance OPT OUT NO COPAY NB OPT OUT NO COPAY NB Care Teams Drill Press Operator Numerical Control Relationship Specialty Start Date End Date Provider, [place] [id number] PCP - General Trailer Mechanic 12/31/21
--- OUTSIDE RECORDS SUMMARY | 2024-11-23 19:53 | XMS_ITS | Clinical Summary ---
Author Organization [facility] Address [address] [place] [address] Care Team Providers Care Fire Chief Name Role Phone Provider, No Known Primary Care Provider Unavail able Allergies No known active allergies Medications promethazine (PHENERGAN) 25 MG tablet Take 25 mg by mouth Every 8 (Eight) Hours As Needed. 11/29/2021 Active Vit-Fe Fumarate-FA ( vitamin 27-0.8) 27-0.8 MG tablet tablet Take 1 tablet by mouth Daily. Active Active Problems Problem Noted Date Diagnosed Date Morbid obesity 02/13/2022 Social History Tobacco Use Types Packs/Day Years Used Date Smoking Tobacco: Never Smokeless Tobacco: Never Tobacco Cessation:Counseling Given: No Alcohol Use Standard Drinks/Week Comments Not Currently 0 (1 standard drink = 0.6 oz pure alcohol) occasional use when not Abuse Screen Answer Date Recorded Unsafe at Home or Work/School Not on file Feels Threatened by Someone? Not on file Does Anyone Keep You from Co ntacting Others or Doint Things Outside the Home? Not on file 12/12/2022 Physical Sign of Abuse Present Not on file 1 Housing Stability Answer Date Recorded Current Living Arrangements Not on file 11/30 Potentially Unsafe Housing Conditions Not on marianela e 12/12/2022 Family and Community Support Answer Austen e Recorded Help with Day-to-Day Activities Not on file 12/12/2022 Lonely or Isolated Not on file 12/12/2022 Employment Answer Date Recorded Do you want help finding or keeping work or a edwige b? Not on file 12/12/2022 Disabilities Answer Date Recorded Concentrating, Remembering, or Making Decisions Difficulty Not on file 12/12/2022 Doing Errands Independently Difficulty Not on fi le 12/12/2022 Education Answer Date Recorded Help with school or training? Not on file Preferred Language Not on file 12/12/2022 Comments No Sex and Gender Information Value Date Recorded Sex Assigned at Not on file Legal Sex Female 2:55 PM EST Gender Identity Not on file Sexual Orientation Not on file Last Filed Vital Signs Vital Sign Reading Time Taken Comments Blood Pressure 112/62 03/26/2022 1:35 PM EST Pulse - - Temperature - - Respiratory Rate - - Oxygen Saturation - - Inhaled Oxygen Concentration - - Weight 136 kg (299 lb 3.2 oz) 03/26/2022 1:35 PM EST Height 167.6 cm (5' 6 ) 02/13/2022 10:48 AM EST Body Mass Index 48.29 02/13/2022 10:48 AM EST Plan of Treatment Health Maintenance Due Date Last Done Comments Annual Gynecologic Pelvic an d Breast Exam 1996 TDAP/TD VACCINES (1 - Tdap) 10/12/2015 ANNUAL PHYSICAL 01/28/2022 HEPATITIS C SCREENING 01/28/2022 INFLUENZA VACCINE 09/30/2024 Pneumococcal Vaccine 0-49 Aged Out No longer eligible based on patient's age to complete this topic Insurance [facility] Care Teams Fire Chief Relationship Specialty Start Date End Date Provider, No Known [facility] [place] [address] PCP - General 01/28/22
--- OUTSIDE RECORDS SUMMARY | 2024-11-23 19:53 | XMS_ITS | Patient Health Record ---
Author Organization [facility] Address [address] [place] [address] Care Team Providers Care Senior Lead Java Developer Name Role Phone Paula Hammond Primary Care Provider PAULA HAMMOND Unavailable Unavaila James Barnes Unavailable [phone] Migration, Provider Unavailable Unavailable Allergies No Known Allergies Reason For Referral Reason medical records for [facility] Referral Organization [facility] GEOVANNY SHETTY Referring Provider First Name Paula Referring Provider Last Name Stephany Referring Provider Speciality Family Pra ctice Referral Priority Routine Medications Medication SIG (Take, Route, Fr equency, Duration) Notes Start Date End Date Status ARIPiprazole 10 MG 1 tab(s) orally once a day; Duration: 30 days 01/20/2024 Active Sertraline HCl 100 MG 1 tab(s) orally once a day Active Wellbutrin XL 300 MG 1 tab(s) orally every 24 hours Active Problems Problem Type SNOMED Code ICD Code Onset Dates Problem Status W/U Status Risk Notes Problem Excessive thirst (77913246) Polydipsia (R63.1) Active confirmed Problem Mixed anxiety and depressive disorder (317288549) Depression with anxiety (F41.8) Active confirmed Problem Body mass index 40+ - severely obese (791921790) BMI 45.0-49.9, adult (Z68.42) Active confirmed Problem Anxiety (74410849) Anxiety (F41.9) Active confirmed Problem Morbid obesity (339878850) Morbid obesity (E66.01) Active confirmed Problem Seasonal allergy (012811605) Seasonal allergies (J30.2) Active confirmed Problem Body mass index 40+ - morbidly obese (329868470) BMI 40.0-44.9, adult (Z68.41) Active confirmed Problem Left lateral knee pain (M25.562) Active confirmed Problem Moderate major depression, single episode (32409043) MDD (major depressive disorder), single episode, moderate (F32.1) Active confirmed Vital Signs Heart Rate 90 /min 02/03/2024 Temperature 98 degrees Fahrenheit 02/03/2024 Blood pressure diastolic 72 mm Hg 02/03/2024 Height 5 ft 7 in in 02/03/2024 Blood pressure systolic 118 mm Hg 02/03/2024 Weight 308 lbs 02/03/2024 BMI 48.23 kg/m2 02/03/2024 Encounters Encounter Location Date Provider Diagnosis [facility] [address] [facility] [address] [place] [address] 12/22/2023 James Besjessie [facility] [address] [facility] [address] [place] [address] 06/04/2024 Provider Migration [facility] [address] [facility] [address] [place] [address] 12/17/2023 Paula Hammond BMI 45.0-49.9, adult Z68.42 ; MDD (major depressive disorder), single episode, moderate F32.1 and Weight loss counseling, encounter for Z71.3 [facility] [address] [address] 01/20/2024 Paula Hammond BMI 45.0-49.9, adult Z68.42 ; MDD (major depressive disorder), single episode, moderate F32.1 and Weight loss counseling, encounter for Z71.3 [facility] [address] [address] 02/03/2024 Paula Hammond MDD (major depressive disorder), single episode, moderate F32.1 Assessments Encounter Date Diagnosis (ICD Code) Assessment Notes Treatment Notes Treatment Clinical Notes Section Notes 12/17/2023 BMI 45.0-49.9, adult (ICD-10 - Z68.42) 12/17/2023 MDD (major depressive disorder), single episode, moderate (ICD-10 - F32.1) Rec addition of Abilify, possible s/e reviewed and strict return precautions. 01/20/2024 BMI 45.0-49.9, adult (ICD-10 - Z68.42) 01/20/2024 MDD (major depressive disorder), single episode, moderate (ICD-10 - F32.1) Rec increase abilify to 10mg and take at HS, otherwise continue sertraline and wellbutrin. She has located a counseling service in [facility] and who takes telehealth visits, encouraged to make appt before our FU in 2 weeks. Remain out of work until FU in 2 weeks 02/03/2024 MDD (major depressive disorder), single episode, moderate (ICD-10 - F32.1) Rec no changes today with respect to medications. Return to work next week, no restrictions. Keep appt for counseling. Strict return precautions reviewed. 01/20/2024 Weight loss counseling, encounter for (ICD-10 - Z71.3) did not tolerate 1.7mg and 1mg hasn't been available, rec 0.5mg weekly until 1mg is available 12/17/2023 Weight loss counseling, encounter for (ICD-10 - Z71.3) Rec back down to 1mg weekly for 1 month and then attempt increasing dose again at that time Plan Of Treatment Pending Test Test Name Order Date Physical Therapy 10/02/2015 Comprehensive Metabolic Panel (CMP) 07/02 Hemoglobin A1C 07/30/2021 Lipid Panel 07/30/2021 TSH 07/30/2021 Insurance Providers Payer Name Payer Address Payer Phone Subscriber Number Group Number Insured Name Patient Relationship to Insured Coverage Start Date Coverage End Date [facility] [address] [place] [address] [id number] Carmela Schuster Self - patient is the insured Medical (General) History Medical History History ICD Code Dysmenorrhea Surgical History Surgery Date(Month/Year) Childbirth 06/12/22 Hospitalization History Reason Date(Month/Year) [facility]- Childbirth 06/12/22
--- NOTE | 2024-11-23 20:02 | PC.NURSE ---
patient brought back into triage room for Dr Barclay to evaluate laceration to the right foot.
--- NOTE | 2024-11-23 20:09 | HMH.EDGENADL ---
Discharge Plan Disposition Patient Disposition: Home, Self-Care Condition: Good Prescriptions Prescriptions: No Action sertraline 50 mg tablet 50 mg PO DAILY Nexplanon 68 mg implant 1 implant subdermal prenat.vits,jossy,txp-owem-cvedc Tablet 1 tab PO DAILY Referrals Follow up/Referrals: Paula Hammond APRN [Primary Care Provider, Medical] - See instructions Activity Restrictions/Add. Instructions Additional Instructions/Restrictions: Keep the dressing on for the next 24 hours. You can take the clear dressing off in 24 hours. Try to keep the glue covered for the next few days to allow the wound to heal. Return to the emergency department for any redness of your foot drainage. Otherwise you can take Tylenol Motrin for pain control. Clinical Impressions Clinical Impression: Laceration Instructions Patient Instructions: DI for Laceration Repair Print Language Print Language: Welsh Discharge ED Provider: Delmy Barclay Adult HPI General Chief complaint: Wound/Laceration Stated complaint: AO 11-23 knife in right foot fell out Time Seen by Provider: 11/23/24 20:08 Mode of Arrival: Ambulatory Source of Information: Patient and Spouse Description of Symptoms (Recalled from ER Triage Doc. by RN): patient presents to the ED after a knife fell off the kitchen conter and pierced the top of her right foot. patinet reports throbbing in the foot. History of Present Illness HPI narrative: Patient is an otherwise healthy 29-year-old female who presented to the emergency department with a laceration to the right foot. Patient states that a clean knife dropped off the counter into her foot. Patient reports some pain but has no neurologic symptoms such as numbness or weakness. Patient is unsure when her last tetanus shot was. Patient is otherwise healthy no medical problems. Related Data Home Medications ?Medication ?Instructions ?Recorded ?Confirmed prenat.vits,jossy,oqf-ehgu-pzhrc 1 tab PO DAILY Supplement 11/29/21 11/20/22 etonogestrel 68 mg subdermal 1 implant subdermal 11/20/22 11/20/22 implant (Nexplanon) sertraline 50 mg tablet 50 mg PO DAILY 11/20/22 11/20/22 Allergies Allergy/AdvReac Type Severity Reaction Status Date / Time No Known Allergies Allergy Verified 07/23/22 14:23 [facility] Disclaimer: The information contained in this section may have been updated after the patient was seen, as this information can be updated by other users. Medical History Acute blood loss anemia Delivery by elective section size inconsistent with dates LGA (large for gestational age) fetus Macrosomia of fetus affecting management of mother in third trimester Maternal morbid obesity, antepartum Morbid obesity with BMI of 45.0-49.9, adult Nausea and vomiting Nexplanon insertion Nexplanon inserted 07/23/22 hemorrhage with 39 completed weeks gestation Screening for genetic disease carrier status 11/29/21 - [facility] carrier screen negative for 14 conditions tested including CF, Fragile X and SMA Surgical History delivery delivered Family History Other No significant family history Social History Smoking Status: Never smoker alcohol intake: current alcohol intake frequency: holidays/special occasions only substance use type: denies use current occupational status: employed Travel in the last 8 weeks?: None housing: house Have you lived/traveled outside [place] in past 30 days?: No Contact w/someone who lives/traveled outside US past 30 days?: No Exposure to someone with infectious disease in past 14 days?: No Do you have a fever (greater than 100.4 F or 38 C)?: No Have you tested positive for COVID-19?: No Exposed to someone with COVID-19 in past 14 days?: No Do you have a sore throat?: No Do you have a cough?: No Do you have any weakness?: No Do you have any diarrhea?: No Are you experiencing any unusual bleeding?: No Do you have any muscle aches/pain?: No Do you have any abdominal pain?: No Are you experiencing loss of taste or smell?: No Other Medical History Have you received the Flu Vaccine for this season: No Have you received the Pneumonia Vaccine: No ROS Obtained: Yes All systems reviewed & no additional complaints except as documented and Yes Systems reviewed as appropriate & no additional complaints except as documented Physical Exam General General appearance: alert and in no apparent distress Head Head exam: atraumatic, normocephalic and normal inspection Eye Eye exam: Present normal appearance, PERRL and EOMI; Absent scleral icterus ENT ENT exam: Present normal exam and normal external ear exam Neck Neck exam: Present normal inspection and full ROM Chest Chest inspection: Present normal inspection and symmetric chest wall rise Respiratory Respiratory exam: Present normal lung sounds bilaterally; Absent respiratory distress or wheezes Cardiovascular Cardiovascular exam: Present regular rate, normal rhythm and normal heart sounds Abdominal Exam Abdominal exam: Present soft and distention; Absent tenderness, guarding or rebound Extremities Exam Extremities exam: Present normal inspection and full ROM Back Exam Back exam: Present normal inspection and full ROM Neurological Exam Neurological exam: Present alert and oriented X3; Absent motor sensory deficit Psychiatric Psychiatric exam: Present normal affect and normal mood Skin Skin exam: Present warm, dry and other (Small 1 cm superficial laceration to the top of the foot no active bleeding no underlying structures evaluated) Medical Decision Making Medical Records Medical records reviewed: Yes I reviewed the patient's medical records. Screening: Per USPSTF and CDC recommendations, given the prevalence of disease in our region, it is our hospital?s policy to screen for HIV and viral Hepatitis for all patients aged 18 and over and those with ongoing risk factors. Misbah Inquiry Pt receiving controlled substance: No Vital Signs: 11/23/24 19:36 11/23/24 20:28 Temperature 98.2 F 98.2 F Temperature Source Temporal Artery Scan Temporal Artery Scan Pulse Rate 80 Pulse Rate [Right Radial] 74 Respiratory Rate 20 20 Blood Pressure 104/69 L Blood Pressure [Right Arm] 104/69 L Blood Pressure Mean [Right Arm] 80 Blood Pressure Source Automatic Cuff Blood Pressure Source [Right Arm] Automatic Cuff Blood Pressure Position Sitting Blood Pressure Position [Right Arm] Sitting 02 Sat by Pulse Oximetry 100 Oxygen Delivery Method Room Air Room Air Orders (Tests/Meds): ED MEDICATIONS Discontinued Medications Generic Name Dose Route Start Last Admin Trade Name Freq PRN Reason Stop Dose Admin Tetanus/Reduced Diphtheria/Acell Pertussis 0.5 ml 11/23/24 20:08 11/23/24 20:26 Tet/Diphth/Pert-Adult 0.5ml Syringe IM 11/23/24 20:09 0.5 ml .ONCE ONE Administration Medical Decision Narrative: Patient is an otherwise healthy 29-year-old female who presented to the emergency department with a laceration to the top of her foot. On arrival, patient was hemodynamically stable with unremarkable vital signs. Differential includes but not limited to: Fracture, laceration, vascular injury, nerve injury, amongst others. On exam, patient had a 1 cm very superficial laceration with no underlying structures seen. Patient was neurovascularly intact in the right foot. Patient had sensation motor intact. Very low concern for fracture at this time. X-ray was not ordered. Patient's wound was cleaned. Dermabond and Steri-Strips were placed and patient was discharged home in stable condition patient was given a tetanus shot. Critical Care Critical Care Time Critical Care Time: No
[2024-11-23] MEDS: TET/DIPHTH/PERT-ADULT 0.5ML SYRINGE 0.5 ML IM (20:26)
[2024-11-23 20:28] VITALS: BP 104/69; PULSE 80; RESP 20; TEMP 36.8; O2SAT 98
== END 2024-11-23 20:27 | disposition home or self-care (01) ==
PROVIDERS: Emergency Provider Student in an Organized Health Care Education/Training Program; PCP Nurse Practitioner Family
DX: S91.311A Laceration without foreign body, right foot, initial encounter (principal); W26.0XXA Contact with knife, initial encounter
CPT/HCPCS: 12001; 90471; 90715; 99283